=== PATIENT | male | born 1965 | race Caucasian/White ===

== ENCOUNTER 2016-08-16 17:34 | Emergency (ER) | payer OTHER ==
[2016-08-16] MEDS ORDERED: ALBUTEROL/IPRATROPIUM 2.5/0.5 MG 3 ML/EACH DOSE ONE (18:26)
[2016-08-16] MEDS ORDERED: AZITHROMYCIN 250 MG TABLET ONE (19:51)
--- NOTE | 2016-08-17 05:39 | RAD ---
History: Cough for 3 months with fever. Comparison: 08/14/2007. Technique: 2 views Findings: 2 views of the chest were performed demonstrating normal-appearing soft tissue and bony structures. There is asymmetric elevation the right hemidiaphragm, slightly more conspicuous than its appearance on prior exam. Linear right basilar atelectasis or scarring is observed. There is no effusion or pneumothorax is seen. The hilar and mediastinal structures are intact. Impression: 1. Asymmetric elevation the right hemidiaphragm with linear right basilar atelectasis or scarring.
== END 2016-08-16 20:00 | disposition home or self-care (01) ==
LOC: ED 17:34
DX: J98.01 Acute bronchospasm (principal); R06.2 Wheezing; R91.8 Other nonspecific abnormal finding of lung field; F17.210 Nicotine dependence, cigarettes, uncomplicated

== ENCOUNTER 2016-09-27 12:03 | Emergency (ER) | payer OTHER ==
--- NOTE | 2016-09-27 13:42 | RAD ---
History: Cough and fever for one week. Comparison: 08/16/2016. Technique: 2 views Findings: There is persistent elevation the right hemidiaphragm, stable to the appearance seen on prior examination. Multiple healed left posterior lateral rib fractures are present. The heart size is stable. No gross consolidation, effusion or pneumothorax is seen. The hilar and mediastinal structures are intact. Impression: 1. Stable persistent elevation of the right hemidiaphragm. 2. Healed left posterior lateral rib fractures.
== END 2016-09-27 15:02 | disposition home or self-care (01) ==
LOC: ED 12:03
DX: R05 Cough (principal); F17.220 Nicotine dependence, chewing tobacco, uncomplicated

== ENCOUNTER 2016-10-28 19:00 | Emergency (ER) | payer OTHER ==
[2016-10-28] MEDS ORDERED: IOPAMIDOL 370 (76%) 100 ML VIAL IV ONE (19:01)
--- NOTE | 2016-10-28 20:12 | CT ---
EXAMINATION: CT angiography of the thorax.CTA CHEST FOR PE INDICATION: Cough wheezing shortness of breath for 6 months. COMPARISON: None TECHNIQUE: Helical scan mode CT of the Thorax after uneventful intravenous contrast administration of 80 ml of Isovue-370. Imaging device: [employer] multidetector CT scan. Helically acquired stacked images were reviewed in the axial, sagittal and coronal planes. Additional 3-D postprocessing was performed and reconstructed images were acquired at the [employer] workstation and reviewed as well. FINDINGS: The bolus is of good quality for diagnosis of pulmonary embolism. There are no pulmonary arterial filling defects. No vascular malformations are identified. The great vessels opacify normally. The lung parenchyma: There is elevation right hemidiaphragm with right basilar atelectasis. Lungs exhibit no mass or lobar consolidation. No emphysematous changes are detected. Scattered foci of peripheral pleural/parenchymal scarring are noted. Pleural effusion: None: Mediastinum: There is no mediastinal or significant hilar lymphadenopathy. No hiatal hernia is identified. Osseus structures: No gross lytic or blastic lesions. Soft tissues: within normal limits Limited evaluation of the abdomen on this arterial phase injection reveals: There is diffuse fatty infiltration liver. No gross mass is identified. No acute inflammatory or obstructive process is identified in the visualized segments. Mild adrenal hypertrophy is noted. IMPRESSION: 1. Negative for pulmonary embolism. 2. Moderate elevation of the right hemidiaphragm with right basilar atelectasis. No consolidation or effusion is identified. 3. Fatty infiltration of liver. The findings were uploaded to the electronic medical record for review at approximately 8:12 PM 10/28/2016
[2016-10-28] MEDS ORDERED: DEXAMETHASONE SOD PHOS 10 MG/1 ML VIAL ONE (20:22)
[2016-10-28] MEDS ORDERED: ALBUTEROL/IPRATROPIUM 2.5/0.5 MG 3 ML/EACH DOSE ONE (20:23)
== END 2016-10-28 20:53 | disposition home or self-care (01) ==
LOC: ED 19:00
DX: J06.9 Acute upper respiratory infection, unspecified (principal); R06.2 Wheezing; R00.0 Tachycardia, unspecified; F17.220 Nicotine dependence, chewing tobacco, uncomplicated
CPT/HCPCS: 71275; 94640; 99283 ×2; 96374; 93005; J1100; Q9967

== ENCOUNTER 2016-11-18 01:42 | Emergency (ER) | payer OTHER ==
[2016-11-18] MEDS ORDERED: DIPHTH,PERTUSS(ACELL),TET VAC 0.5 ML VIAL IM V ONE (04:39)
== END 2016-11-18 04:58 | disposition home or self-care (01) ==
LOC: ED 01:42
DX: S61.412A Laceration without foreign body of left hand, initial encounter (principal); F17.210 Nicotine dependence, cigarettes, uncomplicated; Z23 Encounter for immunization; W45.8XXA Other foreign body or object entering through skin, initial encounter; W20.8XXA Other cause of strike by thrown, projected or falling object, initial encounter; Y93.9 Activity, unspecified; Y92.69 Other specified industrial and construction area as the place of occurrence of the external cause; Y99.0 Civilian activity done for income or pay